=== PATIENT | male | born 1985 | race Caucasian/White ===

== ENCOUNTER 2020-01-26 12:06 | Inpatient (IN) | payer OTHER ==
[2020-01-26] MEDS ORDERED: DEXTROSE 50% SYRINGE 50 ML IVP STA ×2 (12:17→16:40)
[2020-01-26 12:18] LABS: Glucose,Whole Blood 39 mg/dL (75-99)
[2020-01-26] MEDS ORDERED: SODIUM CHLORIDE 0.9% 1,000 ML IV ONE ×2 (12:18→14:27)
--- NOTE | 2020-01-26 12:25 | ED ---
General Adult HPI - General Source: patient, EMS, RN notes reviewed Mode of arrival: EMS Limitations: no limitations <Luis Fernando Dougherty - Last Filed: 01/26/20 13:32> <Daria Pino - Last Filed: 01/29/20 23:48> - General Chief complaint: Fall Stated complaint: hypothermia Time Seen by Provider: 01/26/20 12:08 - History of Present Illness Initial comments: 34-year-old male presents emergency department EMS for fall, hypothermia. Patient states that he was walking last night states that his dog took off after his collar broke. Patient states that he was wandering to the butts states that he's not sure what the last thing he remembers. Patient states he feels like he has cuts all over himself. Patient went of left knee pain, feeling cold. Patient denies any alcohol use states he does use marijuana. He has no symptom past medical history no prescription medications normal drug ALLERGIES. Patient is unsure when he had a fall (Luis Fernando Dougherty) - Related Data Home Medications Medication Instructions Recorded Confirmed No Known Home Medications 01/26/20 01/26/20 Allergies Allergy/AdvReac Type Severity Reaction Status Date / Time No Known Allergies Allergy Unverified 01/26/20 14:19 Review of Systems ROS Other: All systems not noted in ROS Statement are negative. <Luis Fernando Dougherty - Last Filed: 01/26/20 13:32> ROS Other: All systems not noted in ROS Statement are negative. <Daria Pino - Last Filed: 01/29/20 23:48> ROS Statement: Those systems with pertinent positive or pertinent negative responses have been documented in the HPI. Past Medical History Past Medical History: No Reported History History of Any Multi-Drug Resistant Organisms: None Reported Past Surgical History: No Surgical Hx Reported Past Psychological History: No Psychological Hx Reported Smoking Status: Never smoker Past Alcohol Use History: None Reported Past Drug Use History: Marijuana <Luis Fernando Dougherty - Last Filed: 01/26/20 13:32> General Exam Limitations: no limitations General appearance: alert, in no apparent distress, other (Patient appears cold, shaking chills, temp of 89 rectal, multiple abrasions diffusely over the body) Head exam: Present: atraumatic, normocephalic, normal inspection Eye exam: Present: normal appearance, PERRL, EOMI, periorbital swelling (Mild left with ecchymosis noted), periorbital tenderness. Absent: scleral icterus, conjunctival injection ENT exam: Present: normal exam, normal oropharynx, mucous membranes moist, TM's normal bilaterally Neck exam: Present: normal inspection, full ROM. Absent: tenderness, meningismus, lymphadenopathy Respiratory exam: Present: normal lung sounds bilaterally. Absent: respiratory distress, wheezes, rales, rhonchi, stridor Cardiovascular Exam: Present: regular rate, normal rhythm, normal heart sounds. Absent: systolic murmur, diastolic murmur, rubs, gallop, clicks GI/Abdominal exam: Present: soft, normal bowel sounds. Absent: distended, tenderness, guarding, rebound, rigid Extremities exam: Present: other (Tenderness to left medial knee, patient has pain with range of motion, remaining extremities full range of motion, multiple abrasions noted no other significant injuries noted) Back exam: Present: full ROM. Absent: tenderness, paraspinal tenderness, vertebral tenderness Neurological exam: Present: alert, oriented X3, CN II-XII intact, reflexes normal. Absent: motor sensory deficit Skin exam: Present: warm, dry, intact, normal color. Absent: rash <Luis Fernando Dougherty - Last Filed: 01/26/20 13:32> Course <Luis Fernando Dougherty - Last Filed: 01/26/20 13:32> Vital Signs 01/26/20 01/26/20 01/26/20 12:07 12:21 12:30 Temperature 89.3 F L 91.2 F L Pulse Rate 74 75 77 Respiratory 16 16 16 Rate Blood Pressure 109/97 127/89 116/74 O2 Sat by Pulse 96 99 97 Oximetry 01/26/20 01/26/20 01/26/20 13:25 13:49 14:07 Temperature 94.4 F L 95.0 F L 96.6 F L Pulse Rate 80 74 80 Respiratory 16 16 16 Rate Blood Pressure 135/100 128/94 128/89 O2 Sat by Pulse 97 99 99 Oximetry 01/26/20 01/26/20 14:14 14:47 Temperature 97.1 F L 98.7 F Pulse Rate 86 Respiratory 16 Rate Blood Pressure 123/76 O2 Sat by Pulse 99 Oximetry - Reevaluation(s) Reevaluation #1: 01/26/20 12:34 Mother presented to the ER stay the patient does have a history of seizures, patient did have a seizure in the room was given Ativan at this time. (Luis Fernando Dougherty) EKG Findings - EKG Comments: EKG Findings:: EKG performed at 12:33 sinus rhythm rate of 78 WI 238 QRS 100 QT/QTC 468/433 first-degree block <Luis Fernando Dougherty - Last Filed: 01/26/20 13:32> Medical Decision Making - Lab Data Result diagrams: 01/26/20 12:20 01/26/20 12:20 <Luis Fernando Dougherty - Last Filed: 01/26/20 13:32> - Lab Data Result diagrams: 01/26/20 12:20 01/26/20 12:20 <Daria Pino - Last Filed: 01/29/20 23:48> - Medical Decision Making Mother bedside states that he has underlying psychiatric disorder, concern for his behavior and methamphetamine use. Patient's found to be hypothermic, hyponatremic, dehydrated and positive for methamphetamines. Patient will be admitted for further treatment and management. (Luis Fernando Dougherty) I was available for consultation in the emergency department. The history and physical exam were done by the midlevel provider. I was consulted for this patients care. I reviewed the case with the midlevel provider and based on their presentation of the patient, I agree with the assessment, medical decision making and plan of care as documented. I discussed the case with Dr. La who accepted admission of the patient. Chart was dictated using [employer] dictation software. Attempts were made to correct any dictation errors however some typographical errors may persist. Patient was seen during a national state of emergency due to the Covid-19 pandemic. (Daria Pino) - Lab Data Lab Results 01/26/20 01/26/20 01/26/20 Range/Units 01:41 12:16 12:20 WBC 20.4 H (3.8-10.6) k/uL RBC 4.41 (4.30-5.90) m/uL Hgb 13.6 (13.0-17.5) gm/dL Hct 40.0 (39.0-53.0) % MCV 90.7 (80.0-100.0) fL MCH 30.9 (25.0-35.0) pg MCHC 34.1 (31.0-37.0) g/dL RDW 12.4 (11.5-15.5) % Plt Count 279 (150-450) k/uL Neutrophils % 89 % Lymphocytes % 4 % Monocytes % 5 % Eosinophils % 1 % Basophils % 0 % Neutrophils # 18.2 H (1.3-7.7) k/uL Lymphocytes # 0.9 L (1.0-4.8) k/uL Monocytes # 1.1 H (0-1.0) k/uL Eosinophils # 0.1 (0-0.7) k/uL Basophils # 0.0 (0-0.2) k/uL Sodium (137-145) mmol/L Potassium (3.5-5.1) mmol/L Chloride (98-107) mmol/L Carbon Dioxide (22-30) mmol/L Anion Gap mmol/L BUN (9-20) mg/dL Creatinine (0.66-1.25) mg/dL Est GFR (CKD-EPI)AfAm (>60 ml/min/1.73 sqM) Est GFR (CKD-EPI)NonAf (>60 ml/min/1.73 sqM) Glucose (74-99) mg/dL POC Glucose (mg/dL) 39 L (75-99) mg/dL POC Glu Truckload Owner Operator Shaina Gerardo Calcium (8.4-10.2) mg/dL Magnesium (1.6-2.3) mg/dL Total Bilirubin (0.2-1.3) mg/dL AST (17-59) U/L ALT (4-49) U/L Alkaline Phosphatase (38-126) U/L Creatine Kinase (55-170) U/L Troponin I (0.000-0.034) ng/mL Total Protein (6.3-8.2) g/dL Albumin (3.5-5.0) g/dL Lipase (23-300) U/L Urine Opiates Screen (NotDetected) Ur Oxycodone Screen (NotDetected) Urine Methadone Screen (NotDetected) Ur Propoxyphene Screen (NotDetected) Ur Barbiturates Screen (NotDetected) U Tricyclic Antidepress (NotDetected) Ur Phencyclidine Scrn (NotDetected) Ur Amphetamines Screen (NotDetected) U Methamphetamines Scrn (NotDetected) U Benzodiazepines Scrn (NotDetected) Urine Cocaine Screen (NotDetected) U Marijuana (THC) Screen (NotDetected) Serum Alcohol mg/dL Coronavirus (PCR) Not Detected (Not Detected) 01/26/20 01/26/20 01/26/20 Range/Units 12:20 12:20 12:20 WBC (3.8-10.6) k/uL RBC (4.30-5.90) m/uL Hgb (13.0-17.5) gm/dL Hct (39.0-53.0) % MCV (80.0-100.0) fL MCH (25.0-35.0) pg MCHC (31.0-37.0) g/dL RDW (11.5-15.5) % Plt Count (150-450) k/uL Neutrophils % % Lymphocytes % % Monocytes % % Eosinophils % % Basophils % % Neutrophils # (1.3-7.7) k/uL Lymphocytes # (1.0-4.8) k/uL Monocytes # (0-1.0) k/uL Eosinophils # (0-0.7) k/uL Basophils # (0-0.2) k/uL Sodium 126 L (137-145) mmol/L Potassium 4.5 (3.5-5.1) mmol/L Chloride 91 L (98-107) mmol/L Carbon Dioxide 19 L (22-30) mmol/L Anion Gap 16 mmol/L BUN 27 H (9-20) mg/dL Creatinine 1.23 (0.66-1.25) mg/dL Est GFR (CKD-EPI)AfAm 89 (>60 ml/min/1.73 sqM) Est GFR (CKD-EPI)NonAf 77 (>60 ml/min/1.73 sqM) Glucose 34 L* (74-99) mg/dL POC Glucose (mg/dL) (75-99) mg/dL POC Glu Truckload Owner Operator ID Calcium 7.7 L (8.4-10.2) mg/dL Magnesium 3.1 H (1.6-2.3) mg/dL Total Bilirubin 0.8 (0.2-1.3) mg/dL AST 106 H (17-59) U/L ALT 35 (4-49) U/L Alkaline Phosphatase 47 (38-126) U/L Creatine Kinase (55-170) U/L Troponin I <0.012 (0.000-0.034) ng/mL Total Protein 6.6 (6.3-8.2) g/dL Albumin 4.3 (3.5-5.0) g/dL Lipase 102 (23-300) U/L Urine Opiates Screen Not Detected (NotDetected) Ur Oxycodone Screen Not Detected (NotDetected) Urine Methadone Screen Not Detected (NotDetected) Ur Propoxyphene Screen Not Detected (NotDetected) Ur Barbiturates Screen Not Detected (NotDetected) U Tricyclic Antidepress Not Detected (NotDetected) Ur Phencyclidine Scrn Not Detected (NotDetected) Ur Amphetamines Screen Detected H (NotDetected) U Methamphetamines Scrn Detected H (NotDetected) U Benzodiazepines Scrn Not Detected (NotDetected) Urine Cocaine Screen Not Detected (NotDetected) U Marijuana (THC) Screen Not Detected (NotDetected) Serum Alcohol <10 mg/dL Coronavirus (PCR) (Not Detected) 01/26/20 01/26/20 01/26/20 Range/Units 12:20 12:36 14:37 WBC (3.8-10.6) k/uL RBC (4.30-5.90) m/uL Hgb (13.0-17.5) gm/dL Hct (39.0-53.0) % MCV (80.0-100.0) fL MCH (25.0-35.0) pg MCHC (31.0-37.0) g/dL RDW (11.5-15.5) % Plt Count (150-450) k/uL Neutrophils % % Lymphocytes % % Monocytes % % Eosinophils % % Basophils % % Neutrophils # (1.3-7.7) k/uL Lymphocytes # (1.0-4.8) k/uL Monocytes # (0-1.0) k/uL Eosinophils # (0-0.7) k/uL Basophils # (0-0.2) k/uL Sodium (137-145) mmol/L Potassium (3.5-5.1) mmol/L Chloride (98-107) mmol/L Carbon Dioxide (22-30) mmol/L Anion Gap mmol/L BUN (9-20) mg/dL Creatinine (0.66-1.25) mg/dL Est GFR (CKD-EPI)AfAm (>60 ml/min/1.73 sqM) Est GFR (CKD-EPI)NonAf (>60 ml/min/1.73 sqM) Glucose (74-99) mg/dL POC Glucose (mg/dL) 179 H 73 L (75-99) mg/dL POC Glu Truckload Owner Operator ID Wiseheart, Jaleesa Wiseheart, Jaleesa Calcium (8.4-10.2) mg/dL Magnesium (1.6-2.3) mg/dL Total Bilirubin (0.2-1.3) mg/dL AST (17-59) U/L ALT (4-49) U/L Alkaline Phosphatase (38-126) U/L Creatine Kinase 5640 H* (55-170) U/L Troponin I (0.000-0.034) ng/mL Total Protein (6.3-8.2) g/dL Albumin (3.5-5.0) g/dL Lipase (23-300) U/L Urine Opiates Screen (NotDetected) Ur Oxycodone Screen (NotDetected) Urine Methadone Screen (NotDetected) Ur Propoxyphene Screen (NotDetected) Ur Barbiturates Screen (NotDetected) U Tricyclic Antidepress (NotDetected) Ur Phencyclidine Scrn (NotDetected) Ur Amphetamines Screen (NotDetected) U Methamphetamines Scrn (NotDetected) U Benzodiazepines Scrn (NotDetected) Urine Cocaine Screen (NotDetected) U Marijuana (THC) Screen (NotDetected) Serum Alcohol mg/dL Coronavirus (PCR) (Not Detected) 01/26/20 01/26/20 01/27/20 Range/Units 16:28 20:50 07:40 WBC (3.8-10.6) k/uL RBC (4.30-5.90) m/uL Hgb (13.0-17.5) gm/dL Hct (39.0-53.0) % MCV (80.0-100.0) fL MCH (25.0-35.0) pg MCHC (31.0-37.0) g/dL RDW (11.5-15.5) % Plt Count (150-450) k/uL Neutrophils % % Lymphocytes % % Monocytes % % Eosinophils % % Basophils % % Neutrophils # (1.3-7.7) k/uL Lymphocytes # (1.0-4.8) k/uL Monocytes # (0-1.0) k/uL Eosinophils # (0-0.7) k/uL Basophils # (0-0.2) k/uL Sodium (137-145) mmol/L Potassium (3.5-5.1) mmol/L Chloride (98-107) mmol/L Carbon Dioxide (22-30) mmol/L Anion Gap mmol/L BUN (9-20) mg/dL Creatinine (0.66-1.25) mg/dL Est GFR (CKD-EPI)AfAm (>60 ml/min/1.73 sqM) Est GFR (CKD-EPI)NonAf (>60 ml/min/1.73 sqM) Glucose (74-99) mg/dL POC Glucose (mg/dL) 62 L 128 H 124 H (75-99) mg/dL POC Glu Truckload Owner Operator ID Marichuy Louis Connie Castillo, Constance Calcium (8.4-10.2) mg/dL Magnesium (1.6-2.3) mg/dL Total Bilirubin (0.2-1.3) mg/dL AST (17-59) U/L ALT (4-49) U/L Alkaline Phosphatase (38-126) U/L Creatine Kinase (55-170) U/L Troponin I (0.000-0.034) ng/mL Total Protein (6.3-8.2) g/dL Albumin (3.5-5.0) g/dL Lipase (23-300) U/L Urine Opiates Screen (NotDetected) Ur Oxycodone Screen (NotDetected) Urine Methadone Screen (NotDetected) Ur Propoxyphene Screen (NotDetected) Ur Barbiturates Screen (NotDetected) U Tricyclic Antidepress (NotDetected) Ur Phencyclidine Scrn (NotDetected) Ur Amphetamines Screen (NotDetected) U Methamphetamines Scrn (NotDetected) U Benzodiazepines Scrn (NotDetected) Urine Cocaine Screen (NotDetected) U Marijuana (THC) Screen (NotDetected) Serum Alcohol mg/dL Coronavirus (PCR) (Not Detected) Disposition <Luis Fernando Dougherty - Last Filed: 01/26/20 13:32> <Daria Pino - Last Filed: 01/29/20 23:48> Clinical Impression: Fall, Contusion of left knee, Methamphetamine use, Dehydration, Hyponatremia, Hypothermia Disposition: ADMITTED IP TO THIS HOSP Condition: Serious
[2020-01-26] MEDS ORDERED: LORazepam 2 MG/ML INJ IV STA (12:31)
[2020-01-26] MEDS ORDERED: DIPH,PERTUS(ACELL)TETVAC-LF 0.5 ML VIAL IM ONE (12:35)
[2020-01-26 12:37] LABS: Glucose,Whole Blood 179 mg/dL (75-99)
[2020-01-26 12:39] LABS: Basophils % (A) 0 %; Eosinophils # (A) 0.1 k/uL (0-0.7); Eosinophils % (A) 1 %; HGB 13.6 gm/dL (13.0-17.5); Lymphocytes # (A) 0.9 k/uL (1.0-4.8); Lymphocytes % (A) 4 %; MCH 30.9 pg (25.0-35.0); MCHC 34.1 g/dL (31.0-37.0); MCV 90.7 fL (80.0-100.0); Mean Platelet Volume 7.9; Monocytes # (A) 1.1 k/uL (0-1.0); Monocytes % (A) 5 %; Neutrophils # (A) 18.2 k/uL (1.3-7.7); Neutrophils % (A) 89 %; Platelet Count 279 k/uL (150-450); RBC 4.41 m/uL (4.30-5.90); RDW 12.4 % (11.5-15.5); WBC 20.4 k/uL (3.8-10.6)
[2020-01-26 12:55] LABS: ALT 35 U/L (4-49); AST 106 U/L (17-59); African American GFR (CKD) 89 (>60 ml/min/1.73 sqM); Albumin 4.3 g/dL (3.5-5.0); Alcohol <10 mg/dL; Alkaline Phosphatase 47 U/L (38-126); Anion Gap 16 mmol/L; Blood Urea Nitrogen 27 mg/dL (9-20); Calcium 7.7 mg/dL (8.4-10.2); Carbon Dioxide 19 mmol/L (22-30); Chloride 91 mmol/L (98-107); Magnesium 3.1 mg/dL (1.6-2.3); Non-African American GFR(CKD) 77 (>60 ml/min/1.73 sqM); Potassium 4.5 mmol/L (3.5-5.1); Sodium 126 mmol/L (137-145); Total Bilirubin 0.8 mg/dL (0.2-1.3); Total Protein 6.6 g/dL (6.3-8.2)
[2020-01-26 13:04] LABS: Glucose 34 mg/dL (74-99)
[2020-01-26 13:08] LABS: Amphetamine Screen,Urine Detected (NotDetected); Barbiturate Screen,Urine Not Detected (NotDetected); Benzodiazepines Screen,Urine Not Detected (NotDetected); Cocaine Screen,Urine Not Detected (NotDetected); Methadone Screen, Urine Not Detected (NotDetected); Opiate Screen,Urine Not Detected (NotDetected); Oxycodone Screen, Urine Not Detected (NotDetected); Phencyclidine Screen,Urine Not Detected (NotDetected); Tricyclic Antidepressant,Urine Not Detected (NotDetected); Urn Cannabinoid Scrn Not Detected (NotDetected)
--- NOTE | 2020-01-26 13:13 | CT ---
EXAMINATION TYPE: CT brain oma wo con DATE OF EXAM: 01/26/2020 COMPARISON: None HISTORY: Hypothermia, Pain CT DLP: 1264.5 mGycm, Automated exposure control for dose reduction was used. CONTRAST: Patient injected with 0 mL of Isovue 300. CT of the brain is performed utilizing 3 mm thick sections through the posterior fossa and 3 mm thick sections through the remaining calvarium. Study is performed within 24 hours of arrival to the hospital. No abnormal hyperdensity is present to suggest an acute intracranial hemorrhage. No mass lesion is evident. No acute infarcts are evident. Ventricles and sulci are appropriate for the patient age. There are air-fluid level within the left maxillary sinus. Correlate for acute left maxillary sinusit is. Large retention cyst or fluid is within the right sphenoid sinus. On brain windows this has incre ased density. Other etiologies including neoplasm should be considered. Mild mucosal thickening withi n ethmoid air cells. There is an air-fluid level within the left frontal sinus. Right frontal sinus i s aplastic. Clinical consideration for pansinusitis. IMPRESSIONS: 1. No acute intracranial process. 2. Multiple air-fluid levels within scattered paranasal sinuses. Correlate for pansinusitis. 3. Inspissated mucus, retention cyst, acute sinusitis of the right sphenoid sinus may be present. Oth er etiologies including neoplasm should be considered and follow-up is recommended. CT cervical spine. COMPARISON: None CT of the cervical spine is performed in the axial plane at 2 mm thick sections. Reconstructed image s in the coronal, and sagittal plane are reviewed on the computer. No acute fractures are evident. Vertebral body alignment is normal. Disc heights are preserved. Vertebral body heights are preserved. No spinal canal stenosis is evident. No neural foraminal stenosis is evident. IMPRESSIONS: 1. Normal CT cervical spine.
--- NOTE | 2020-01-26 13:26 | XR ---
EXAMINATION TYPE: XR knee complete LT DATE OF EXAM: 01/26/2020 COMPARISON: None HISTORY: Abrasions on the knee TECHNIQUE: Three-view left knee FINDINGS: No acute fractures or dislocations are evident. Soft tissues appear normal. No joint fluid is evident. No radiopaque foreign bodies are evident. IMPRESSION: 1. Normal three-view left knee. 2. Follow-up exams can be performed 7-10 days acute trauma for continued pain.
[2020-01-26] MEDS ORDERED: NALOXONE 0.4 MG/ML 1 ML VIAL IV PRN (13:42)
[2020-01-26 14:46] LABS: Glucose,Whole Blood 73 mg/dL (75-99)
[2020-01-26] MEDS: SODIUM CHLORIDE 0.9% 1,000 ML IV SCH (15:29)
[2020-01-26 16:30] LABS: Glucose,Whole Blood 62 mg/dL (75-99)
[2020-01-26] MEDS: DEXTROSE 5%-0.9% NACL 1,000 ML IV SCH (16:47)
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
[2020-01-26 20:54] LABS: Glucose,Whole Blood 128 mg/dL (75-99)
[2020-01-27] MEDS: DEXTROSE 5%-0.9% NACL 1,000 ML IV SCH ×3 (06:08→15:18)
[2020-01-27] MEDS: SODIUM CHLORIDE 0.9% 1,000 ML IV SCH ×2 (06:09→15:19)
[2020-01-27 07:45] LABS: Glucose,Whole Blood 124 mg/dL (75-99)
[2020-01-27 12:09] LABS: Glucose,Whole Blood 126 mg/dL (75-99)
[2020-01-27] MEDS ORDERED: HALOPERIDOL LACTATE 5 MG/ML 1 ML VIAL IM STA (12:23)
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
[2020-01-27] MEDS ORDERED: HALOPERIDOL LACTATE 5 MG/ML 1 ML VIAL IM PRN (14:19)
[2020-01-27 17:26] LABS: Glucose,Whole Blood 93 mg/dL (75-99)
[2020-01-27 20:53] LABS: Glucose,Whole Blood 102 mg/dL (75-99)
[2020-01-28 01:56] LABS: Glucose,Whole Blood 111 mg/dL (75-99)
[2020-01-28 06:55] LABS: Glucose,Whole Blood 112 mg/dL (75-99)
[2020-01-28] MEDS: DEXTROSE 5%-0.9% NACL 1,000 ML IV SCH ×4 (07:18→15:04)
[2020-01-28] MEDS: SODIUM CHLORIDE 0.9% 1,000 ML IV SCH ×2 (07:19→15:05)
[2020-01-28 11:31] LABS: Glucose,Whole Blood 113 mg/dL (75-99)
[2020-01-28 17:16] LABS: Glucose,Whole Blood 110 mg/dL (75-99)
--- NOTE | 2020-01-28 18:14 | PN ---
PROGRESS NOTE CHIEF COMPLAINT: Acute psychosis. HISTORY OF PRESENT ILLNESS: This gentleman is calm right now. Restraints were removed. He is being cooperative. He is to be seen by psych sometime today. PHYSICAL EXAM: Normal. Chest is clear. Cardiac exam is normal and skin lesions are healing. IMPRESSION: 1. Multiple abrasions and excoriations. 2. Acute psychosis. 3. ? schizophrenia. PLAN: Await psychiatric evaluation. MMODL / IJN: [id number] /
[2020-01-28 20:40] LABS: Glucose,Whole Blood 131 mg/dL (75-99)
[2020-01-29] MEDS: DEXTROSE 5%-0.9% NACL 1,000 ML IV SCH ×3 (07:10→11:25)
[2020-01-29 07:39] LABS: Glucose,Whole Blood 121 mg/dL (75-99)
[2020-01-29 08:06] VITALS: BP 105/57; PULSE 54; RESP 16; TEMP 97.8
--- NOTE | 2020-01-29 08:56 | P.CON ---
Consult Note - . 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 He is a 34-year-old male with history of cocaine and methamphetamine use. [facility], disorganized and agitated. His UDS was positive for methamphetamine and amphetamines. He was admitted to medicine unit for evaluation and treatment of her fall and hypothermia. His management required 4-point restraints due to left for his agitation. The restraints were removed yesterday. His long no longer confused, paranoid or disorganized. He admits to the use of methamphetamine and is interested and is outpatient substance abuse treatment. Mental status exam: He presented as a calm and casually groomed 34-year-old male who was resting comfortably in bed. He made eye contact and attended to interview. He had healing abrasions and contusions on his face, arms and legs. He was not agitated or restless. His speech was spontaneous with normal rate, rhythm and volume. His affect was stable and appropriate. He denied suicidal ideation, wish or homicidal ideation. He denied feeling hopeless, helpless or worthless. He denied ideas reference, paranoid ideation and did not express delusional thoughts or beliefs. His thinking was abstract and associations were coherent and logical. Assessment: He is fully recovered from the methamphetamine intoxication and his psychosis has resolved. He no longer meets criteria for inpatient psychiatric treatment. He would benefit from substance abuse treatment. Plan: Discharge home when he is medically stable. Provide him information about outpatient substance abuse treatment services. Psychiatry will sign off on this case.
[2020-01-29 11:23] LABS: Glucose,Whole Blood 114 mg/dL (75-99)
--- NOTE | 2020-01-29 19:36 | DS ---
DISCHARGE SUMMARY CHIEF COMPLAINT: Confusion and multiple abrasions and contusions. HISTORY OF PRESENT ILLNESS AND PHYSICAL EXAM: Details of this man's history and physical can be found in the initial workup. LABORATORY STUDIES: While he was in the hospital he had laboratory studies, details of which can be found in the laboratory section of his chart. COURSE IN HOSPITAL: After admission he was placed on bedrest, started on intravenous fluids. Efforts were made to restore body temperature. This was successful. As he was rehydrated, he was noted to be confused and inappropriate at times. He was found to have methamphetamine in his urine drug screen. At one point he became very violent, hostile and had to be restrained. In discussing the case with the family, he apparently has had psychiatric problems ever since he has been in the and his mother has been begging him to go for help. Because of these issues and his paranoid delusions, seen by Psychiatry who felt that he could be discharged and did not need to be further treated or treated as an inpatient. He will go home on his usual activity, diet, no medications and will follow up in the office. FINAL DIAGNOSES: 1. Acute psychotic episode. 2. Paranoid schizophrenia. 3. Methamphetamine use. 4. Multiple abrasions and contusions. OPERATIONS: None. CONSULTATIONS: Psychiatry. He is improved. MMODL / IJN: [id number] /
== END 2020-01-29 13:13 | disposition home or self-care (01) | DRG 923 ==
LOC: EC 12:06 → 4SSUR 13:37 → OBSVTOIN 01-27 11:01
PROVIDERS: ADMIT Family Medicine; ATTEND Family Medicine
DX: T68.XXXA Hypothermia, initial encounter (principal); E87.1 Hypo-osmolality and hyponatremia; M62.82 Rhabdomyolysis; F20.0 Paranoid schizophrenia; E16.2 Hypoglycemia, unspecified; E86.0 Dehydration; Z78.1 Physical restraint status; F15.129 Other stimulant abuse with intoxication, unspecified; F14.10 Cocaine abuse, uncomplicated; D72.829 Elevated white blood cell count, unspecified; S00.81XA Abrasion of other part of head, initial encounter; S00.83XA Contusion of other part of head, initial encounter; S80.02XA Contusion of left knee, initial encounter; W18.30XA Fall on same level, unspecified, initial encounter; Y93.9 Activity, unspecified; Y92.828 Other wilderness area as the place of occurrence of the external cause; R45.1 Restlessness and agitation; Z56.0 Unemployment, unspecified; Z11.59 Encounter for screening for other viral diseases
CPT/HCPCS: 36415; 70450; 72125; 80053; 80306; 80320; 82550; 83690; 83735; 84484; 85025; 87635; 90471; 90715; 93005; 96361; 96374; 96375; 99285

== ENCOUNTER 2020-04-09 14:13 | Emergency (ER) | payer OTHER ==
[2020-04-09 14:20] VITALS: RESP 18; TEMP 98.2
--- NOTE | 2020-04-09 15:12 | ED ---
General Adult HPI - General Chief complaint: Extremity Injury, Lower Stated complaint: R Foot Injury Time Seen by Provider: 04/09/20 14:23 Source: patient, RN notes reviewed, old records reviewed Mode of arrival: wheelchair Limitations: no limitations - History of Present Illness Initial comments: 34-year-old male presenting with right foot injury. Patient states that approximately 2 hours prior to arrival he dropped a safe on his right foot. He's had pain with range of motion of the foot. He did have a abrasion to the right dorsal foot. He states his tetanus is up-to-date he had a tetanus shot several months ago. No numbness or tingling in the toes. No other injury. - Related Data Previous Rx's Medication Instructions Recorded Ibuprofen [Motrin] 600 mg PO Q8HR PRN #24 tab 04/09/20 Allergies Allergy/AdvReac Type Severity Reaction Status Date / Time No Known Allergies Allergy Unverified 01/26/20 14:19 Review of Systems ROS Statement: Those systems with pertinent positive or pertinent negative responses have been documented in the HPI. ROS Other: All systems not noted in ROS Statement are negative. Past Medical History Past Medical History: No Reported History, Seizure Disorder History of Any Multi-Drug Resistant Organisms: None Reported Past Surgical History: No Surgical Hx Reported Past Psychological History: Depression Smoking Status: Never smoker Past Alcohol Use History: None Reported Past Drug Use History: Marijuana General Exam Limitations: no limitations General appearance: alert, in no apparent distress Head exam: Present: atraumatic, normocephalic Eye exam: Present: normal appearance, PERRL ENT exam: Present: normal exam Neck exam: Present: normal inspection. Absent: tenderness, meningismus Respiratory exam: Present: normal lung sounds bilaterally. Absent: respiratory distress, wheezes Cardiovascular Exam: Present: regular rate, normal rhythm GI/Abdominal exam: Present: soft. Absent: distended, tenderness Extremities exam: Present: other (Right foot, abrasion to the dorsal surface and fell, no gross deformity, normal cap refill, normal range of motion.) Back exam: Present: normal inspection Course Vital Signs 04/09/20 14:18 Temperature 98.2 F Pulse Rate 54 L Respiratory 18 Rate Blood Pressure 119/79 O2 Sat by Pulse 98 Oximetry Medical Decision Making - Medical Decision Making X-rays performed of the right foot negative for fracture or dislocation. Patient will elevate and ice extremity, take Motrin for pain. He will follow with his primary care physician regarding repeat x-rays if symptoms persist beyond one week. Disposition Clinical Impression: Foot contusion Disposition: HOME SELF-CARE Instructions (If sedation given, give patient instructions): Foot Contusion (ED) Prescriptions: Ibuprofen [Motrin] 600 mg PO Q8HR PRN #24 tab PRN Reason: Pain Is patient prescribed a controlled substance at d/c from ED?: No Referrals: None,Stated [Primary Care Provider] - 1-2 days Time of Disposition: 15:12
--- NOTE | 2020-04-09 15:15 | XR ---
EXAMINATION TYPE: XR foot complete RT DATE OF EXAM: 04/09/2020 CLINICAL HISTORY: pain TECHNIQUE: Frontal, lateral and oblique images of the right foot are obtained. COMPARISON: None. FINDINGS: There is no acute fracture/dislocation evident. The joint spaces appear within normal velasco its. The overlying soft tissue appears unremarkable. IMPRESSION: There is no acute fracture or dislocation. ICD 10 NO FRACTURE, INITIAL EVALUATION
[2020-04-09 15:58] VITALS: BP 119/73; PULSE 59
== END 2020-04-09 15:58 | disposition home or self-care (01) ==
LOC: EC 14:13
DX: S90.31XA Contusion of right foot, initial encounter (principal); W20.8XXA Other cause of strike by thrown, projected or falling object, initial encounter
CPT/HCPCS: 99284

== ENCOUNTER 2022-04-28 16:56 | Emergency (ER) | payer OTHER ==
[2022-04-28 17:47] VITALS: BP 107/62; PULSE 57; RESP 18; TEMP 98.7
[2022-04-28 17:57] LABS: Basophils % (A) 1 %; Eosinophils # (A) 0.1 k/uL (0-0.7); Eosinophils % (A) 2 %; HCT 42.9 % (39.0-53.0); HGB 13.8 gm/dL (13.0-17.5); Lymphocytes # (A) 1.7 k/uL (1.0-4.8); Lymphocytes % (A) 28 %; MCH 30.2 pg (25.0-35.0); MCHC 32.1 g/dL (31.0-37.0); MCV 94.1 fL (80.0-100.0); Mean Platelet Volume 8.3; Monocytes # (A) 0.4 k/uL (0-1.0); Monocytes % (A) 6 %; Neutrophils # (A) 3.8 k/uL (1.3-7.7); Neutrophils % (A) 62 %; Platelet Count 202 k/uL (150-450); RBC 4.56 m/uL (4.30-5.90); RDW 11.9 % (11.5-15.5); WBC 6.2 k/uL (3.8-10.6)
[2022-04-28 18:13] LABS: ALT 30 U/L (4-49); AST 21 U/L (17-59); African American GFR (CKD) >90 (>60 ml/min/1.73 sqM); Albumin 3.8 g/dL (3.5-5.0); Alkaline Phosphatase 50 U/L (38-126); Anion Gap 10 mmol/L; Blood Urea Nitrogen 15 mg/dL (9-20); Calcium 8.5 mg/dL (8.4-10.2); Carbon Dioxide 27 mmol/L (22-30); Chloride 103 mmol/L (98-107); Glucose 68 mg/dL (74-99); Non-African American GFR(CKD) >90 (>60 ml/min/1.73 sqM); Potassium 3.8 mmol/L (3.5-5.1); Sodium 140 mmol/L (137-145); Total Bilirubin 0.3 mg/dL (0.2-1.3); Total Protein 6.1 g/dL (6.3-8.2)
--- NOTE | 2022-04-28 19:08 | ED ---
Nausea/Vomiting/Diarrhea HPI - General Chief complaint: Nausea/Vomiting/Diarrhea Stated complaint: COVID +,SOB Time Seen by Provider: 04/28/22 17:48 Source: patient, family Mode of arrival: ambulatory - Related Data Previous Rx's Medication Instructions Recorded Ibuprofen [Motrin] 600 mg PO Q8HR PRN #24 tab 04/09/20 Allergies Allergy/AdvReac Type Severity Reaction Status Date / Time No Known Allergies Allergy Verified 04/28/22 17:48 Review of Systems ROS Statement: Those systems with pertinent positive or pertinent negative responses have been documented in the HPI. ROS Other: All systems not noted in ROS Statement are negative. Past Medical History Past Medical History: No Reported History, Seizure Disorder History of Any Multi-Drug Resistant Organisms: None Reported Past Surgical History: No Surgical Hx Reported Past Psychological History: Depression Smoking Status: Never smoker Past Alcohol Use History: None Reported Past Drug Use History: Marijuana Course Vital Signs 04/28/22 17:45 Temperature 98.7 F Pulse Rate 57 L Respiratory 18 Rate Blood Pressure 107/62 O2 Sat by Pulse 98 Oximetry Medical Decision Making - Lab Data Result diagrams: 04/28/22 17:52 04/28/22 17:52 Lab Results 04/28/22 04/28/22 Range/Units 17:52 17:52 WBC 6.2 (3.8-10.6) k/uL RBC 4.56 (4.30-5.90) m/uL Hgb 13.8 (13.0-17.5) gm/dL Hct 42.9 (39.0-53.0) % MCV 94.1 (80.0-100.0) fL MCH 30.2 (25.0-35.0) pg MCHC 32.1 (31.0-37.0) g/dL RDW 11.9 (11.5-15.5) % Plt Count 202 (150-450) k/uL MPV 8.3 Neutrophils % 62 % Lymphocytes % 28 % Monocytes % 6 % Eosinophils % 2 % Basophils % 1 % Neutrophils # 3.8 (1.3-7.7) k/uL Lymphocytes # 1.7 (1.0-4.8) k/uL Monocytes # 0.4 (0-1.0) k/uL Eosinophils # 0.1 (0-0.7) k/uL Basophils # 0.0 (0-0.2) k/uL Sodium 140 (137-145) mmol/L Potassium 3.8 (3.5-5.1) mmol/L Chloride 103 (98-107) mmol/L Carbon Dioxide 27 (22-30) mmol/L Anion Gap 10 mmol/L BUN 15 (9-20) mg/dL Creatinine 0.74 (0.66-1.25) mg/dL Est GFR (CKD-EPI)AfAm >90 (>60 ml/min/1.73 sqM) Est GFR (CKD-EPI)NonAf >90 (>60 ml/min/1.73 sqM) Glucose 68 L (74-99) mg/dL Calcium 8.5 (8.4-10.2) mg/dL Total Bilirubin 0.3 (0.2-1.3) mg/dL AST 21 (17-59) U/L ALT 30 (4-49) U/L Alkaline Phosphatase 50 (38-126) U/L Total Protein 6.1 L (6.3-8.2) g/dL Albumin 3.8 (3.5-5.0) g/dL Disposition Clinical Impression: COVID-19 Disposition: HOME SELF-CARE Instructions (If sedation given, give patient instructions): COVID-19 (Coronavirus Disease 2019) (ED), How to Recover from COVID-19 at Home (ED) Referrals: None,Stated [Primary Care Provider] - 1-2 days
== END 2022-04-29 01:32 | disposition home or self-care (01) ==
LOC: EC 16:56
DX: Z53.21 Procedure and treatment not carried out due to patient leaving prior to being seen by health care provider (principal)
CPT/HCPCS: 36415; 80053; 85025; 99499